=== PATIENT | female | born 1985 ===

== ENCOUNTER → 2019-03-21 | Outpatient (CLI) | payer BC ==
[2019-03-21 10:33] LABS: HCT 38.8 % (34.0-46.0); HGB 12.8 gm/dL (11.4-16.0); MCH 31.1 pg (25.0-35.0); MCV 94.3 fL (80.0-100.0); Mean Platelet Volume 8.9; Platelet Count 259 k/uL (150-450); RBC 4.11 m/uL (3.80-5.40); RDW 12.8 % (11.5-15.5); WBC 10.2 k/uL (3.8-10.6)
--- NOTE | 2019-03-21 13:48 | US ---
EXAMINATION TYPE: US thyroid st tissue head/neck DATE OF EXAM: 03/21/2019 COMPARISON: NONE CLINICAL HISTORY: Z83.49 family hx thyroid disease. GLAND SIZE: Right Lobe: 4.3 x 1.6 x 0.8 cm Overall Parenchyma: homogenous Left Lobe: 3.8 x 1.4 x 0.9 cm Overall Parenchyma: homogeneous Isthmus Thickness: 0.2 cm Homogeneous thyroid tissue is noted bilaterally. No nodules are seen. Bilateral neck scanned: no evidence of lymphadenopathy. IMPRESSION: No sizable solid or cystic thyroid nodules.
[2019-03-21 15:50] LABS: African American GFR (CKD) 110.7 (60.0-200.0); Albumin 4.4 g/dL (3.80-4.90); Albumin/Globulin Ratio 2.1 (1.60-3.17); Anion Gap 0.1 mmol/L (4.00-12.00); BUN/Creat Ratio 12.5 Ratio (12.00-20.00); Calcium 9.3 mg/dL (8.7-10.3); Carbon Dioxide 27.9 mmol/L (21.6-31.8); Globulin 2.1 g/dL (1.6-3.3); Non-African American GFR(CKD) 95.5 (60.0-200.0); Potassium 4.1 mmol/L (3.5-5.5); Total Bilirubin 0.6 mg/dL (0.2-1.2); Total Protein 6.5 g/dL (6.2-8.2)
[2019-03-21 15:58] LABS: Prolactin 13.3 ng/mL (2.8-29.2)
[2019-03-21 15:59] LABS: T4, Free (Free Thyroxine) 1.1 ng/dL (0.80-1.80)
== END | disposition home or self-care (01) ==
LOC: LABWHC1 10:04
PROVIDERS: ATTEND Internal Medicine Endocrinology, Diabetes & Metabolism
DX: Z13.228 Encounter for screening for other metabolic disorders (principal); R53.83 Other fatigue; Z83.49 Family history of other endocrine, nutritional and metabolic diseases
CPT/HCPCS: 36415; 76536; 80053; 82024; 82533; 82607; 84146; 84439; 84443; 84445; 84481; 85027

== ENCOUNTER → 2019-04-05 | Outpatient (CLI) | payer BC | END | disposition home or self-care (01) | LOC: LABWHC1 13:47 | PROVIDERS: ATTEND Internal Medicine Endocrinology, Diabetes & Metabolism | DX: R53.83 Other fatigue (principal); Z83.49 Family history of other endocrine, nutritional and metabolic diseases | CPT/HCPCS: 36415; 86376 ==